=== PATIENT | female | born 1975 | race Caucasian/White ===

== ENCOUNTER 2018-07-06 21:36 | Emergency (ER) | payer SELFPAY ==
[~2018-07-06] VITALS: Ht 144.8 cm; Wt 69.1 kg
[2018-07-06 22:10] VITALS: BP 157/94; Ht 144.8 cm; Wt 69.1 kg
[2018-07-06] MEDS ORDERED: LISINOPRIL-HCT1 EAC7 PO (22:17)
[2018-07-06] MEDS ORDERED: HUMALOG 30100 UNITS/ (22:17)
[2018-07-06] MEDS ORDERED: XANAX0.25 MG (22:18)
[2018-07-06] MEDS ORDERED: LEVEMIR IN100 UNITS/ (22:18)
[2018-07-07 00:23] LABS: KETONE - SERUM NEGATIVE (NEGATIVE)
[2018-07-07 00:31] LABS: HEMATOCRIT 38.2 % (36.0-48.0); HEMOGLOBIN 13.3 g/dL (12-16); LYMPHOCYTES 34.8 % (15-50); MCH 32.2 pg (26.0-34.0); MCHC 34.8 g/dL (31.0-37.0); MCV 92.5 fL (80.0-100.0); MEAN PLATELET VOLUME 9.5 fL (7.4-10.4); NEUTROPHILS 60.4 % (40-80); PLATELET COUNT 323 10x3/uL (130-400); RBC 4.13 10x6/uL (4.00-5.40); RDW 11.9 % (11.5-14.5); WBC 9.8 10x3/uL (4.8-10.8)
[2018-07-07 00:35] LABS: ALBUMIN 3.9 g/dL (3.4-5.0); ALKALINE PHOSPHATASE 170 U/L (46-116); ALT (SGPT) 34 U/L (10-68); BILIRUBIN - TOTAL 0.15 mg/dL (0.2-1.3); CALC OSMOLALITY 281 mosm/kg (275-300); CALCIUM 9.5 mg/dL (8.5-10.1); CARBON DIOXIDE 26.8 mmol/L (21.0-32.0); CHLORIDE - SERUM 98 mmol/L (98-107); CREATININE - SERUM 1.1 mg/dL (0.6-1.3); GLUCOSE 251 mg/dL (74-106); POTASSIUM - SERUM 4.3 mmol/L (3.5-5.1); PROTEIN - SERUM 8.3 g/dL (6.4-8.2); SODIUM 136 mmol/L (136-145); UREA NITROGEN 18 mg/dL (7-18); eGFR NON AFRICAN AMERICAN 57 mL/min (90-120)
[2018-07-07 01:19] LABS: APPEARANCE HAZY (CLEAR); BILIRUBIN NEGATIVE (NEGATIVE); COLOR YELLOW (YELLOW); GLUCOSE 1000 mg/dL (NEGATIVE); KETONE NEGATIVE (NEGATIVE); NITRITE NEGATIVE (NEGATIVE); PROTEIN NEGATIVE (NEGATIVE); SPECIFIC GRAVITY 1.015 (1.005-1.020); UROBILINOGEN NORMAL (NORMAL)
[2018-07-07 01:25] LABS: BACTERIA MANY /hpf (NONE SEEN); RED CELLS - URINE RARE /hpf (0-5); WHITE CELLS - URINE 0-5 /hpf (0-5); YEAST <1+ /hpf (NONE SEEN)
[2018-07-07] MEDS ORDERED: LOPRESSOR25 MG PO (01:50)
[2018-07-07] MEDS ORDERED: LISINOPRIL-HCT1 EAC4 PO (01:50)
== END 2018-07-07 02:27 | disposition home or self-care (01) ==
LOC: D.ER 21:36
PROVIDERS: Family Medicine
DX: I10 Essential (primary) hypertension (principal); G89.29 Other chronic pain; E10.9 Type 1 diabetes mellitus without complications; Z79.4 Long term (current) use of insulin

== ENCOUNTER 2018-10-20 17:42 | Emergency (ER) | payer MEDICAID ==
[~2018-10-20] VITALS: Ht 144.8 cm; Wt 71.8 kg
[~2018-10-20 17:42] MED LIST: HUMALOG 30100 UNITS/; LEVEMIR IN100 UNITS/; LISINOPRIL-HCT1 EAC4 PO; LISINOPRIL-HCT1 EAC7 PO; LOPRESSOR25 MG PO; XANAX0.25 MG
[2018-10-20 17:58] VITALS: Ht 144.8 cm; Wt 71.8 kg
[2018-10-20 19:11] LABS: ALBUMIN 3.3 g/dL (3.4-5.0); ALKALINE PHOSPHATASE 176 U/L (46-116); BILIRUBIN - TOTAL 0.34 mg/dL (0.2-1.3); CALCIUM 8.8 mg/dL (8.5-10.1); CARBON DIOXIDE 25.9 mmol/L (21.0-32.0); CHLORIDE - SERUM 99 mmol/L (98-107); MAGNESIUM - SERUM 1.9 mg/dL (1.8-2.4); POTASSIUM - SERUM 4.6 mmol/L (3.5-5.1); PROTEIN - SERUM 7.2 g/dL (6.4-8.2); SODIUM 134 mmol/L (136-145); UREA NITROGEN 18 mg/dL (7-18); eGFR NON AFRICAN AMERICAN 64 mL/min (90-120)
[2018-10-20 19:30] LABS: ALT (SGPT) 53 U/L (10-68); CALC OSMOLALITY 282 mosm/kg (275-300); GLUCOSE 324 mg/dL (74-106)
[2018-10-20 19:53] LABS: APPEARANCE CLEAR (CLEAR); COLOR YELLOW (YELLOW); SPECIFIC GRAVITY 1.015 (1.005-1.020)
[2018-10-20 19:54] LABS: BILIRUBIN NEGATIVE (NEGATIVE); GLUCOSE 1000 mg/dL (NEGATIVE); KETONE NEGATIVE (NEGATIVE); NITRITE NEGATIVE (NEGATIVE); PROTEIN NEGATIVE (NEGATIVE); UROBILINOGEN NORMAL (NORMAL)
[2018-10-20 19:55] LABS: BASOPHILS 0.2 % (0-2); EOSINOPHILS 0.3 % (0-7); HEMATOCRIT 34.1 % (36.0-48.0); HEMOGLOBIN 11.8 g/dL (12-16); IMMATURE GRANULOCYTES 0.9 % (0-5); LYMPHOCYTES 23.5 % (15-50); MCH 31.5 pg (26.0-34.0); MCHC 34.6 g/dL (31.0-37.0); MCV 90.9 fL (80.0-100.0); MEAN PLATELET VOLUME 10.5 fL (7.4-10.4); MONOCYTES 5.2 % (2-11); NEUTROPHILS 69.9 % (40-80); RBC 3.75 10x6/uL (4.00-5.40); RDW 13.1 % (11.5-14.5); WBC 13.2 10x3/uL (4.8-10.8)
[2018-10-20 19:59] LABS: BACTERIA FEW /hpf (NONE SEEN); PLATELET COUNT 219 10x3/uL (130-400); RED CELLS - URINE 0-5 /hpf (0-5); WHITE CELLS - URINE 0-5 /hpf (0-5)
[2018-10-20 20:41] LABS: KETONE - SERUM NEGATIVE (NEGATIVE)
[2018-10-20] MEDS ORDERED: PHENERGAN25 M1 PO (22:14)
[2018-10-20 22:46] VITALS: BP 132/86
== END 2018-10-20 22:52 | disposition home or self-care (01) ==
LOC: D.ER 17:42
PROVIDERS: Emergency Medicine
DX: E11.65 Type 2 diabetes mellitus with hyperglycemia (principal); M54.5 Low back pain